=== PATIENT | male | born 1980 | race Caucasian/White ===

== ENCOUNTER 2018-05-01 10:46 | Emergency (ER) | payer MEDICAID ==
[~2018-05-01] VITALS: Ht 185.4 cm; Wt 90.9 kg
[2018-05-01 10:48] VITALS: Ht 185.4 cm; Wt 90.9 kg
[2018-05-01 11:17] LABS: BASOPHILS 0.1 % (0-2); EOSINOPHILS 0.1 % (0-7); HEMATOCRIT 43.4 % (42.0-54.0); HEMOGLOBIN 14.8 g/dL (13.5-17.5); IMMATURE GRANULOCYTES 0.1 % (0-5); LYMPHOCYTES 12.1 % (15-50); MCHC 34.1 g/dL (31.0-37.0); MCV 93.7 fL (80.0-100.0); MEAN PLATELET VOLUME 9.5 fL (7.4-10.4); MONOCYTES 13.1 % (2-11); NEUTROPHILS 74.5 % (40-80); PLATELET COUNT 280 10x3/uL (130-400); RBC 4.63 10x6/uL (4.20-6.10); RDW 13.7 % (11.5-14.5); WBC 7.1 10x3/uL (4.8-10.8)
[2018-05-01 11:33] LABS: ALBUMIN 4.3 g/dL (3.4-5.0); ALKALINE PHOSPHATASE 83 U/L (46-116); ALT (SGPT) 25 U/L (10-68); BILIRUBIN - TOTAL 0.48 mg/dL (0.2-1.3); CALC OSMOLALITY 278 mosm/kg (275-300); CALCIUM 9.4 mg/dL (8.5-10.1); CHLORIDE - SERUM 103 mmol/L (98-107); CREATININE - SERUM 0.7 mg/dL (0.6-1.3); GLUCOSE 110 mg/dL (74-106); POTASSIUM - SERUM 3.8 mmol/L (3.5-5.1); PROTEIN - SERUM 8.1 g/dL (6.4-8.2); SODIUM 140 mmol/L (136-145); UREA NITROGEN 9 mg/dL (7-18); eGFR NON AFRICAN AMERICAN > 90 mL/min (90-120)
[2018-05-01 11:37] LABS: AMYLASE - SERUM 44 U/L (25-115); CKMB 1.5 U/L (0.0-3.6); CREATINE KINASE 282 UL (21-232); LIPASE 162 U/L (73-393); MAGNESIUM - SERUM 2.2 mg/dL (1.8-2.4)
[2018-05-01 11:38] LABS: TROPONIN-I < 0.017 ng/mL (0.000-0.060)
[2018-05-01 11:50] LABS: APPEARANCE CLEAR (CLEAR); BILIRUBIN NEGATIVE (NEGATIVE); COLOR YELLOW (YELLOW); GLUCOSE NEGATIVE (NEGATIVE); KETONE NEGATIVE (NEGATIVE); NITRITE NEGATIVE (NEGATIVE); PROTEIN NEGATIVE (NEGATIVE); SPECIFIC GRAVITY 1.015 (1.005-1.020)
[2018-05-01 11:55] LABS: UDS - AMPHET NEGATIVE QUAL (NEGATIVE); UDS - BARB POSITIVE QUAL (NEGATIVE); UDS - BENZO NEGATIVE QUAL (NEGATIVE); UDS - COCAINE NEGATIVE QUAL (NEGATIVE); UDS - OPIATE NEGATIVE QUAL (NEGATIVE); UDS - PCP NEGATIVE QUAL (NEGATIVE); UDS - THC POSITIVE QUAL (NEGATIVE)
[2018-05-01 16:30] VITALS: BP 160/108
[2018-05-01 17:12] LABS: BASOPHILS 0.2 % (0-2); EOSINOPHILS 0.8 % (0-7); HEMATOCRIT 41.7 % (42.0-54.0); IMMATURE GRANULOCYTES 0.2 % (0-5); MCHC 33.6 g/dL (31.0-37.0); MCV 95.2 fL (80.0-100.0); MEAN PLATELET VOLUME 9.2 fL (7.4-10.4); MONOCYTES 10.5 % (2-11); NEUTROPHILS 65.3 % (40-80); PLATELET COUNT 255 10x3/uL (130-400); RBC 4.38 10x6/uL (4.20-6.10); RDW 13.9 % (11.5-14.5)
[2018-05-01 17:26] LABS: ALBUMIN 3.8 g/dL (3.4-5.0); ALKALINE PHOSPHATASE 77 U/L (46-116); ALT (SGPT) 25 U/L (10-68); BILIRUBIN - TOTAL 0.21 mg/dL (0.2-1.3); CALC OSMOLALITY 280 mosm/kg (275-300); CALCIUM 8.9 mg/dL (8.5-10.1); CARBON DIOXIDE 26.3 mmol/L (21.0-32.0); CHLORIDE - SERUM 105 mmol/L (98-107); CREATININE - SERUM 0.7 mg/dL (0.6-1.3); GLUCOSE 95 mg/dL (74-106); MAGNESIUM - SERUM 2.1 mg/dL (1.8-2.4); POTASSIUM - SERUM 3.4 mmol/L (3.5-5.1); PROTEIN - SERUM 7.3 g/dL (6.4-8.2); SODIUM 142 mmol/L (136-145); UREA NITROGEN 8 mg/dL (7-18); eGFR NON AFRICAN AMERICAN > 90 mL/min (90-120)
== END 2018-05-01 16:35 ==
LOC: D.ER 10:46
PROVIDERS: Family Medicine
DX: R45.851 Suicidal ideations (principal); F10.10 Alcohol abuse, uncomplicated; F13.10 Sedative, hypnotic or anxiolytic abuse, uncomplicated